=== PATIENT | male | born 1980 | race Caucasian/White ===

== ENCOUNTER 2020-05-07 08:58 | Emergency (ER) | payer OTHER ==
[~2020-05-07] VITALS: Ht 162.6 cm; Wt 72.6 kg
[2020-05-07 09:28] LABS: HEMATOCRIT 49.2 % (42.0-52.0); HEMOGLOBIN 16.8 gm/dL (14.0-18.0); MCH 31.8 pg (26.0-34.0); MCHC 34.2 g/dL (28.0-37.0); MPV 8.3 fl. (7.2-11.1); NUCLEATED RBCS 0 /100WBC; PLATELET COUNT* 302 thou/uL (150-400); RBC 5.29 mil/uL (4.50-6.00); RDW-CV 12.4 % (10.5-14.5); WBC 9.8 thou/uL (4.0-11.0)
[2020-05-07 09:39] LABS: CALCIUM 9.4 mg/dL (8.5-10.1); POTASSIUM 4.2 mmol/L (3.5-5.1)
[2020-05-07 09:43] LABS: TOTAL BILIRUBIN 0.4 mg/dL (<0.1-1.0); TOTAL PROTEIN 7.5 g/dL (6.4-8.2)
[2020-05-07] MEDS ORDERED: OMEPRAZOLE 20 M20 M1 PO (10:41)
[2020-05-07 10:57] VITALS: BP 103/68
[2020-05-07 11:08] LABS: ABSOLUTE BASOPHILS 0.3 thou/uL (0.0-0.2); ABSOLUTE EOSINOPHILS 0.1 thou/uL (0.0-0.7); ABSOLUTE LYMPHOCYTES 2.5 thou/uL (0.8-5.3); ABSOLUTE MONOCYTES 0.5 thou/uL (0.0-1.2); ABSOLUTE NEUTROPHILS 6.4 thou/uL (1.6-8.1); ATYPICAL LYMPHS 5 %
[2020-05-07 11:10] LABS: PLATELET ESTIMATE ADEQUATE
--- NOTE | 2020-05-08 10:08 | EKG ---
[place] [address] ELECTROCARDIOGRAM REPORT Name: DELVIS PAREKH Room: [facility]#: [id number] Admission: 05/07/20 Attend Phys: Discharge: 05/07/20 Date of : 76 Date of Service: 05/07/20901 Report #: [id number] THIS REPORT FOR: //name// [facility] ED Test Date: 2020-05-07 Test Time: 09:02:44 Pat Name: DELVIS PAREKH Department: Room: Gender: Managed Care Provider: : [id number] Requested By: Jermaine Weems Order Number: [id number] MD: Sammy Lindsay Measurements Intervals [place] Rate: 80 P: 68 CA: 148 QRS: 18 QRSD: 90 T: 54 QT: 346 QTc: 400 Interpretive Statements Sinus rhythm RSR' in V1 or V2, right VCD Minimal ST elevation, anterior leads No previous ECG available for comparison Electronically Signed On 05-08-2020 10:08:02 SHOWER ROOM ATTENDANT by Sammy Lindsay [email or web address] <ELECTRONICALLY SIGNED> By: Sammy Lidnsay MD, [facility] 05/08/20 1008 [id number] [id number] Sammy Lindsay MD, [facility] /EPI
== END 2020-05-07 11:02 | disposition home or self-care (01) ==
LOC: M.ERS 08:58
PROVIDERS: Emergency Medicine
DX: R10.13 Epigastric pain (principal)

== ENCOUNTER 2021-04-05 09:24 | Emergency (ER) | payer OTHER ==
[~2021-04-05] VITALS: Ht 167.6 cm; Wt 68.0 kg
[~2021-04-05 09:24] MED LIST: OMEPRAZOLE 20 M20 M1 PO
[2021-04-05] MEDS ORDERED: NAPROSYN500 MG PO (13:10)
[2021-04-05 13:14] VITALS: BP 114/70
== END 2021-04-05 13:15 | disposition home or self-care (01) ==
LOC: M.ERS 09:24
DX: M25.522 Pain in left elbow (principal); Z79.899 Other long term (current) drug therapy; X50.1XXA Overexertion from prolonged static or awkward postures, initial encounter; Y93.89 Activity, other specified; Y92.89 Other specified places as the place of occurrence of the external cause; Y99.9 Unspecified external cause status